=== PATIENT | female | born 1990 | race Caucasian/White ===

== ENCOUNTER 2018-01-10 15:17 | Emergency (ER) | payer OTHER ==
[2018-01-10 15:40] VITALS: BP 105/63; PULSE 82; RESP 16; TEMP 98.2; O2SAT 99
== END 2018-01-10 16:20 | disposition home or self-care (01) ==
LOC: ED 15:17
DX: S80.811A Abrasion, right lower leg, initial encounter (principal); W55.03XA Scratched by cat, initial encounter
CPT/HCPCS: 99282